=== PATIENT | female | born 1950 | race Caucasian/White ===

== ENCOUNTER → 2022-02-02 10:40 | Outpatient (CLI) | payer MEDICARE, OTHER, SELFPAY ==
[2022-02-02 11:56] LABS: Add Manual Diff / Slide Review NO; Basophils Absolute Auto 0 /uL (0-100); Basophils Percent Auto 0.4 % (0-2); Eosinophils Absolute Auto 100 /uL (0-450); Eosinophils Percent Auto 2.4 % (2-4); Hematocrit 42.3 % (36-46); Hemoglobin 14.1 g/dL (12.0-16.0); Lymphocytes Absolute Auto 1100 /uL (1100-4500); Lymphocytes Percent Auto 20.4 % (25-40); Mean Corpuscular HGB Conc 33.3 % (30-36); Mean Corpuscular Hemoglobin 30.1 PG (26-34); Mean Corpuscular Volume 90.4 fL (80-100); Monocytes Absolute Auto 500 /uL (0-900); Monocytes Percent Auto 10.2 % (3-14); Neutrophils Absolute Auto 3500 /uL (1500-7000); Neutrophils Percent Auto 66.6 % (50-75); Platelet Count 213 X10^3/uL (150-400); Red Blood Cell Count 4.67 X10^6/uL (4.0-5.2); Red Cell Distribution Width 14.9 % (11.6-14.8); White Blood Cell Count 5.2 X10^3/uL (4.5-11.0)
[2022-02-02 12:46] LABS: Erythrocyte Sedimentation Rate 11 MM/HR (0-20)
[2022-02-02 13:00] LABS: Alanine Aminotransferase 68 IU/L (<35); Albumin 4.3 g/dL (3.5-5.0); Albumin Globulin Ratio 1.6 (1.0-2.8); Alkaline Phosphatase 89 U/L (38-126); Aspartate Aminotransferase 57 IU/L (14-36); BUN Creatinine Ratio 18.3 (6-22); Bilirubin Total 0.6 mg/dL (0.2-1.3); Blood Urea Nitrogen 15 mg/dL (7-17); C-Reactive Protein Quant 0.9 mg/dL (<1.0); Calcium 9.2 mg/dL (8.4-10.2); Carbon Dioxide 29 mmol/L (22-32); Chloride 106 mmol/L (98-107); Cholesterol 196 mg/dL (140-199); Estimated Glomerular Filt Rate > 60 mL/min (>60); Globulin 2.7 g/dL (1.7-4.1); Glucose 108 mg/dL (80-110); HDL Cholesterol 74 mg/dL (40-60); HEMOLYSIS < 15 (0-50); LDL Cholesterol Calculated 105 mg/dL (<100); Potassium 4.5 mmol/L (3.4-5.1); Sodium 140 mmol/L (137-145); Triglycerides 86 mg/dL (35-150)
[2022-02-18 17:11] LABS: Vitamin D 25 Hydroxy (D3) 38.6 ng/mL (30.0-100.0)
== END ==
PROVIDERS: PCP Family Medicine; Referring Provider Family Medicine; Visit Provider Family Medicine
DX: D3A.8 Other benign neuroendocrine tumors (principal); L40.50 Arthropathic psoriasis, unspecified; G89.29 Other chronic pain; K21.9 Gastro-esophageal reflux disease without esophagitis; M54.50 Low back pain, unspecified
CPT/HCPCS: 36415; 80053; 80061; 82306; 85025; 85651; 86140

== ENCOUNTER → 2022-05-12 09:32 | Outpatient (CLI) | payer MEDICARE, OTHER, SELFPAY ==
--- NOTE | 2022-05-26 08:39 | P.HOLT.S_ITS ---
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 Patient Seen: 05/12/22 Requesting provider: Jose M Servin Indication: Palpitations Duration of monitoring (days): 7 Diary information: There were 29 patient triggered events and 5 patient diary entries Patient triggered events were variably associated (within 45 seconds) sinus rhythm, PVCs including ventricular bigeminy, PACs and SVT Patient diary events were variably associated with (within 45 seconds) sinus rhythm, PVCs and ventricular trigeminy Data: Minimum heart rate identified was 40 beats per minute at 16:39 on 05/13/2022 Maximum sinus heart rate was 134 beats per minute at 14:57 on 05/16/2022 Maximum overall heart rate was 200 beats per minute at 16:15 on 05/12/2022 dur ing a run of SVT Less than 1% of identified beats were ventricular or supraventricular ectopic in origin, which would classify them as rare. 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 Patient reported events were variably associated with multiple dysrhythmias as above and no clear single dysrhythmia seem to be a source of patient's symptoms No more significant findings discovered on this study Clinical correlation suggested
== END ==
PROVIDERS: PCP Family Medicine; Referring Provider Family Medicine; Visit Provider Family Medicine
DX: R00.2 Palpitations (principal); R06.09 Other forms of dyspnea
CPT/HCPCS: 93242; 93244

== ENCOUNTER → 2022-06-07 12:54 | Outpatient (CLI) | payer MEDICARE, OTHER, SELFPAY ==
[2022-06-07 14:47] LABS: COVID19 -Nasal RAPID Negative (Negative)
--- NOTE | 2022-06-07 14:52 | DI.ECHO.S_ITS ---
Interpretation Summary The ejection fraction is estimated to be 60-65%. Diastolic function could not be accurately assessed due to unobtainable data. The right ventricle is normal in size and function. No significant valvular abnormalities. Unable to estimate PASP. Procedure: A two-dimensional transthoracic echocardiogram with color flow and Doppler was performed. The study quality was technically difficult. There is no prior echocardiogram noted for this patient. A contrast injection of Definity was performed to improve assessment of LV function. The patient was in normal sinus rhythm during the exam. Left Ventricle: The left ventricle is normal in size and wall thickness. Left ventricular systolic function is normal. The ejection fraction is estimated to be 60-65%. There are no focal wall motion abnormalities. Diastolic function could not be accurately assessed due to unobtainable data. Right Ventricle: The right ventricle is normal in size and function. Atria: Both atria are normal in size. The interatrial septum grossly appears intact with no obvious evidence for an atrial septal defect. Mitral Valve: The mitral valve is normal in structure and function. There is no mitral regurgitation noted. Aortic Valve: The aortic valve is trileaflet. There is no aortic valve stenosis. No aortic regurgitation is present. Tricuspid Valve: The tricuspid valve is normal in structure but is abnormal in function. There is trace tricuspid regurgitation. Pulmonary artery pressures cannot be estimated because of the lack of a measurable TR jet velocity. Pulmonic Valve: The pulmonic valve is normal in structure and function. There is no pulmonic valvular regurgitation. Great Vessels: The aortic root is normal size. The dimensions of the ascending aorta are normal. The inferior vena cava was not visualized. Pericardium/ Pleura There is no pericardial effusion. There is no pleural effusion. MMode/2D Measurements & Calculations LVIDd: 4.5 cm LVOT diam: 2.0 cm LVIDs: 3.1 cm Ao root diam: 2.6 cm FS: 31.1 % asc Aorta Diam: 2.9 cm IVSd: 0.90 cm LVPWd: 0.90 cm LV be. diameter/BSA (cm/m^2): 2.1 LV sys. diameter/BSA (cm/m^2): 1.5 LA dimension: 3.1 cm RA long axis: 3.9 cm LA A2 area: 14.6 cm2 LA A4 area: 14.8 cm2 LA length (vol): 4.8 cm LA vol: 38.5 ml LA vol index: 18.2 ml/m2 TAPSE_phl: 2.4 cm Doppler Measurements & Calculations Ao V2 max: 123.0 cm/sec LVOT Max Willis: 99.9 cm/sec Ao V2 mean: 89.5 cm/sec LV V1 max P.0 mmHg Ao max P.0 mmHg LV V1 VTI: 24.8 cm Ao mean P.0 mmHg MAZIN(I,D): 2.6 cm2 Ao V2 VTI: 29.5 cm MAZIN(V,D): 2.6 cm2 sev ratio: 0.84 MAZIN indexed to BSA (cm^2/m^2): 1.2 MV E max willis: 83.1 cm/sec SV(LVOT): 77.9 ml MV A max willis: 71.1 cm/sec MV E/A: 1.2 Med Peak E' Willis: 7.8 cm/sec E/E' med: 10.6 Lat Peak E' Willis: 9.0 cm/sec E/E' lat: 9.2 E/e' average: 9.9 MV dec time: 0.20 sec AV VR_phl: 0.81 MV P1/2t-pr_phl: 60.0 msec MAZIN(VTI)/BSA_phl: 1.3 Reading Physician:05:02 PM
[2022-06-18 08:15] LABS: COVID19 -Nasal RAPID Negative (Negative)
--- NOTE | 2022-06-18 20:15 | DI.NM.S_ITS ---
DATE OF SERVICE: 06/07/2022 PROCEDURE PERFORMED: Exercise treadmill stress and rest myocardial perfusion imaging with gating to assess ejection fraction and regional wall motion. ORDERING PROVIDER: Dr. Jose M Servin. INDICATIONS: The patient is a 71-year-old female with palpitations and exertional dyspnea. CARDIAC STRESS: Her resting images were obtained on , after she was injected with 25.4 millicuries of technetium-99m Myoview and was imaged 20 minutes later. Her stress test was not performed until 06/18/2022 when she exercised on a standard Robbin protocol for 4 minutes, 57 seconds, suggesting mildly impaired exercise capacity with an ARLENE of +10%. She had a normal heart rate response to exercise, achieving a maximum heart rate of 144 BPM (97% of her predicted maximum), but had a hypertensive blood pressure response with a resting blood pressure of 160/88, increasing to a maximum of 245/96. She had no chest discomfort or other anginal symptoms and her resting ECG is normal with normal ST segments. There are no significant ST-segment shifts or arrhythmias with stress. At 3 minutes, 50 seconds of exercise at a heart rate of 129 BPM, 26.9 millicuries of technetium-99m Myoview was injected and she was imaged 10 minutes later using a gated SPECT acquisition protocol. FINDINGS: 1. Raw data: There is fair myocardial tracer uptake with moderate breast shadows that are more prominent on the stress images than the resting images. The lung/heart ratio is normal at 0.20 with a normal TID ratio of 1.24. 2. Myocardial perfusion imaging: Post-stress ejection fraction is 82% without any focal wall motion abnormality and specifically the anterior wall has normal contractility. There is slightly increased tracer uptake in the right ventricular free wall which can be an indication of a right ventricular overload condition. The resting ejection fraction is 87% with a normal end-diastolic volume of 71 mL. 3. Myocardial perfusion imaging: Post-stress supine images show a fairly normal myocardial perfusion pattern except a mild defect in the mid anterior wall, consistent with breast attenuation artifact, supported by its near-complete resolution on the prone images. The resting images show similar perfusion pattern, although with some slight improvement in the anterior wall, but likely reflecting breast attenuation artifact. IMPRESSION: 1. Probable normal myocardial perfusion study. 2. Mild, partially reversible mid anterior defect that nearly resolves on prone imaging, most consistent with probable breast attenuation artifact, although a small volume of ischemia cannot be entirely excluded. 3. Normal left ventricular systolic function without any focal wall motion abnormality. Mildly increased right ventricular tracer uptake could indicate a right ventricular overload condition but clinical correlation is recommended. 4. Mildly impaired exercise capacity without angina or ECG evidence of ischemia but with a notable hypertensive blood pressure response to exercise. Chela Watkins - MENA/jeremy/romina doc#: [id number]/job#: [id number] dd: 06/18/2022 17:02:00 dt: 06/18/2022 19:23:00 DICTATING /COPIES TO: Gorge Pratt MD COPIES MNE: BOSSMAN;
== END ==
PROVIDERS: PCP Family Medicine; Referring Provider Family Medicine; Visit Provider Family Medicine
DX: R00.2 Palpitations (principal); R06.09 Other forms of dyspnea; Z20.822 Contact with and (suspected) exposure to COVID-19
CPT/HCPCS: 78452; 87635; 93017; A9502; C8929; Q9957

== ENCOUNTER → 2022-12-08 15:15 | Outpatient (CLI) | payer MEDICARE, OTHER, SELFPAY ==
--- NOTE | 2022-12-08 15:16 | DI.RAD.S_ITS ---
PROCEDURE: XR FOOT RT MIN 3V INDICATIONS: trauma to foot TECHNIQUE: 3 views of the foot were acquired. COMPARISON: None. FINDINGS: Bones: There is a mildly displaced oblique fracture of the distal aspect of the proximal phalanx of the 5th digit . ORIF of the distal fibula. Well corticated bony fragment adjacent to the medial malleolus. Periarticular osteophyte formation at the tibiotalar and talonavicular joints. Soft tissues: No tibiotalar joint effusion. Achilles tendon appears normal. IMPRESSION: 1. 5th digit fracture. 2. Postsurgical sequelae. 3. Osteoarthritis. Dictated by: Lorraine Sanchez M.D. on 12/08/2022 at 16:23 Approved by: Lorraine Sanchez M.D. on 12/08/2022 at 16:24
== END ==
PROVIDERS: PCP Family Medicine; Referring Provider Family Medicine; Visit Provider Family Medicine
DX: S92.531A Displaced fracture of distal phalanx of right lesser toe(s), initial encounter for closed fracture (principal); M19.071 Primary osteoarthritis, right ankle and foot; M79.671 Pain in right foot
CPT/HCPCS: 73630

== ENCOUNTER → 2023-01-06 12:41 | Outpatient (CLI) | payer MEDICARE, OTHER, SELFPAY ==
--- NOTE | 2023-01-06 12:43 | DI.RAD.S_ITS ---
PROCEDURE: XR FOOT RT MIN 3V INDICATIONS: broken 5th toe TECHNIQUE: 3 views of the foot were acquired. COMPARISON: [facility], , XR FOOT RT MIN 3V, 12/08/2022, 15:19. FINDINGS: Bones: Subacute fracture of the 5th proximal phalange. Bridging callus noted at the fracture site compatible with evolution of healing. Fracture is healing in near anatomic alignment. Distal fibular fixation hardware is stable. Midfoot osteoarthritis and calcaneal bone spurs are stable. Soft tissues: No tibiotalar joint effusion. Achilles tendon appears normal. IMPRESSION: 5th proximal phalange fracture healing in near anatomic alignment. Dictated by: Sloane Grant MD, PhD on 01/06/2023 at 13:31 Approved by: Sloane Grant MD, PhD on 01/06/2023 at 13:31
== END ==
PROVIDERS: PCP Family Medicine; Referring Provider Family Medicine; Visit Provider Family Medicine
DX: S92.511D Displaced fracture of proximal phalanx of right lesser toe(s), subsequent encounter for fracture with routine healing (principal); M19.071 Primary osteoarthritis, right ankle and foot; M77.31 Calcaneal spur, right foot; M79.671 Pain in right foot; X58.XXXD Exposure to other specified factors, subsequent encounter
CPT/HCPCS: 73630

== ENCOUNTER → 2023-09-06 13:39 | Outpatient (CLI) | payer MEDICARE, OTHER, SELFPAY ==
--- NOTE | 2023-09-06 13:43 | DI.MRI.S_ITS ---
PROCEDURE: MR SHOULDER RT WO CON INDICATIONS: right shoulder pain TECHNIQUE: Noncontrast oblique coronal T2 fast spin echo with fat saturation, oblique sagittal T1 spin echo and T2 fast spin echo with fat saturation, axial T1 spin echo and T2 fast spin echo with fat saturation through the shoulder. COMPARISON: None. FINDINGS: Image quality: Excellent. Rotator cuff: There is moderate T2 signal elevation diffusely throughout the supraspinatus and infraspinatus tendons at the humeral insertion sites extending the musculotendinous junctions, indicating tendinopathy. There is high-grade transversely oriented tearing of the anterior and mid supraspinatus tendon at the humeral insertion site. There is low-grade intrasubstance tearing of the posterior supraspinatus tendon as well as the anterior infraspinatus tendon at the humeral insertion site. Moderate grade bursal surface and intrasubstance tearing of the mid and posterior infraspinatus tendon at the humeral insertion site. Teres minor tendon is intact. Moderate-grade intrasubstance tearing of the inferior aspect of the subscapularis tendon at the humeral insertion site is present. No rotator cuff atrophy. Bones and bursae: No bone marrow contusions or fractures. Moderate glenohumeral and acromioclavicular joint degeneration. The acromion demonstrates conventional anatomy, without an os acromiale. A small amount of subacromial-subdeltoid or subcoracoid bursal fluid is present. Capsule and soft tissues: Diffuse degenerative fraying of the glenoid labrum with superimposed undercutting of the posterosuperior labrum, indicating focal tearing. The long head of the biceps tendon demonstrates moderate T2 signal elevation within its substance proximally, indicating tendinopathy. There is partial-thickness tearing of the biceps tendon within the bicipital groove.. The rotator interval appears normal, without fibrosis. The coracohumeral ligament is normal in thickness. IMPRESSION: 1. Multifocal partial-thickness tears of the rotator cuff as above. 2. Acromioclavicular and glenohumeral joint osteoarthritis. 3. Partial thickness biceps tendon tear. 4. Glenoid labral tear. 5. Subacromial bursitis. Dictated by: Lorraine Sanchez M.D. on 09/06/2023 at 16:11 Approved by: Lorraine Sanchez M.D. on 09/06/2023 at 16:20
== END ==
PROVIDERS: PCP Family Medicine; Referring Provider Family Medicine; Visit Provider Family Medicine
DX: M75.111 Incomplete rotator cuff tear or rupture of right shoulder, not specified as traumatic (principal); M19.011 Primary osteoarthritis, right shoulder; S46.111A Strain of muscle, fascia and tendon of long head of biceps, right arm, initial encounter; S43.431A Superior glenoid labrum lesion of right shoulder, initial encounter; M75.51 Bursitis of right shoulder; M25.511 Pain in right shoulder
CPT/HCPCS: 73221

== ENCOUNTER → 2023-09-09 09:44 | Outpatient (CLI) | payer MEDICARE, OTHER, SELFPAY ==
[2023-09-09 10:42] LABS: Hemoglobin A1C% w Est Avg Glu 5.7 % (4.0-6.0)
[2023-09-09 11:21] LABS: TSH w/ Reflex to FT4 1.82 uIU/mL (0.47-4.68)
== END ==
PROVIDERS: PCP Family Medicine; Referring Provider Family Medicine; Visit Provider Family Medicine
DX: R73.09 Other abnormal glucose (principal); R63.5 Abnormal weight gain; L30.9 Dermatitis, unspecified; R20.0 Anesthesia of skin; R20.2 Paresthesia of skin; Z13.29 Encounter for screening for other suspected endocrine disorder
CPT/HCPCS: 36415; 83036; 84443

== ENCOUNTER → 2023-11-08 15:18 | Outpatient (CLI) | payer MEDICARE, OTHER, SELFPAY ==
--- NOTE | 2023-11-08 15:20 | DI.RAD.S_ITS ---
PROCEDURE: XR HIP W PEL IF DONE LT 2V INDICATIONS: pain x 3 weeks TECHNIQUE: AP pelvis with lateral view(s) of the left hip(s). COMPARISON: None. FINDINGS: Bones: No fractures or dislocations. Pelvic ring appears intact. No suspicious bony lesions. Mild nonuniform joint space narrowing with osteophytic lipping of the acetabulum. Soft tissues: The visualized bowel gas pattern is normal. No suspicious soft tissue calcifications. IMPRESSION: Mild left hip osteoarthritis. Dictated by: Len Su M.D. on 11/08/2023 at 16:43 Approved by: Len Su M.D. on 11/08/2023 at 16:44
--- NOTE | 2023-11-08 15:20 | DI.RAD.S_ITS ---
PROCEDURE: XR LUMBAR SPINE 2-3V INDICATIONS: pain x 3 weeks TECHNIQUE: 3 views of the lumbar spine were acquired. COMPARISON: None. FINDINGS: Bones: 5 [id number] vertebrae are present. Grade 1 anterolisthesis of L4 on L5. Moderate disc height loss at L2-3, L4-5. Mild disc height loss at remaining levels. Facet arthrosis of L2 through S1. Soft tissues: Overlying bowel gas pattern is normal. No suspicious soft tissue calcifications. Cholecystectomy clips. IMPRESSION: Mild to moderate, multilevel degenerative disc disease and facet arthrosis. Grade 1 anterolisthesis of L4 on L5, likely due to facet arthrosis. Dictated by: Len Su M.D. on 11/08/2023 at 16:43 Approved by: Len Su M.D. on 11/08/2023 at 16:43
[2023-11-08 16:56] LABS: Add Manual Diff / Slide Review NO; Basophils Absolute Auto 0 /uL (0-100); Basophils Percent Auto 0.4 % (0-2); Eosinophils Absolute Auto 200 /uL (0-450); Eosinophils Percent Auto 2.9 % (2-4); Hematocrit 41.6 % (36-46); Hemoglobin 14.1 g/dL (12.0-16.0); Lymphocytes Absolute Auto 1400 /uL (1100-4500); Lymphocytes Percent Auto 19.5 % (25-40); Mean Corpuscular HGB Conc 33.9 % (30-36); Mean Corpuscular Hemoglobin 30.2 PG (26-34); Mean Corpuscular Volume 88.9 fL (80-100); Monocytes Absolute Auto 600 /uL (0-900); Monocytes Percent Auto 9.2 % (3-14); Neutrophils Absolute Auto 4800 /uL (1500-7000); Platelet Count 202 X10^3/uL (150-400); Red Blood Cell Count 4.68 X10^6/uL (4.0-5.2)
[2023-11-08 17:25] LABS: Hemoglobin A1C% w Est Avg Glu 5.9 % (4.0-6.0)
[2023-11-08 17:27] LABS: Alanine Aminotransferase 37 IU/L (<35); Albumin 4.8 g/dL (3.5-5.0); Albumin Globulin Ratio 1.6 (1.0-2.8); Alkaline Phosphatase 101 U/L (38-126); Aspartate Aminotransferase 36 IU/L (14-36); BUN Creatinine Ratio 20.3 (6-22); Bilirubin Total 0.6 mg/dL (0.2-1.3); Blood Urea Nitrogen 16 mg/dL (7-17); Calcium 9.5 mg/dL (8.4-10.2); Carbon Dioxide 24 mmol/L (22-32); Chloride 108 mmol/L (98-107); Estimated Glomerular Filt Rate > 60 mL/min (>60); Glucose 95 mg/dL (80-110); HEMOLYSIS < 15 (0-50); Potassium 4.2 mmol/L (3.4-5.1); Sodium 139 mmol/L (137-145); Total Protein 7.8 g/dL (6.3-8.2)
[2023-11-08 17:34] LABS: NT-proBNP (BNP-Adult 18+) 310 pg/mL (<125)
== END ==
PROVIDERS: PCP Family Medicine; Referring Provider Physician Assistant; Visit Provider Physician Assistant
DX: M25.552 Pain in left hip (principal); G89.29 Other chronic pain; M54.50 Low back pain, unspecified
CPT/HCPCS: 36415; 72100; 73502; 80053; 83036; 83880; 85025

== ENCOUNTER → 2024-01-11 12:07 | Outpatient (CLI) | payer MEDICARE, OTHER, SELFPAY ==
[2024-01-11 12:33] LABS: Add Manual Diff / Slide Review NO; Basophils Absolute Auto 0 /uL (0-100); Basophils Percent Auto 0.4 % (0-2); Eosinophils Absolute Auto 200 /uL (0-450); Eosinophils Percent Auto 2.5 % (2-4); Hematocrit 42.5 % (36-46); Hemoglobin 14.1 g/dL (12.0-16.0); Lymphocytes Absolute Auto 1300 /uL (1100-4500); Lymphocytes Percent Auto 19.1 % (25-40); Mean Corpuscular HGB Conc 33.2 % (30-36); Mean Corpuscular Hemoglobin 29.4 PG (26-34); Mean Corpuscular Volume 88.4 fL (80-100); Monocytes Absolute Auto 600 /uL (0-900); Monocytes Percent Auto 9.5 % (3-14); Neutrophils Absolute Auto 4700 /uL (1500-7000); Neutrophils Percent Auto 68.5 % (50-75); Platelet Count 230 X10^3/uL (150-400); Red Cell Distribution Width 14.2 % (11.6-14.8); White Blood Cell Count 6.8 X10^3/uL (4.5-11.0)
[2024-01-11 12:48] LABS: Alanine Aminotransferase 27 IU/L (<35); Albumin 4.4 g/dL (3.5-5.0); Albumin Globulin Ratio 1.5 (1.0-2.8); Alkaline Phosphatase 94 U/L (38-126); Aspartate Aminotransferase 31 IU/L (14-36); BUN Creatinine Ratio 21.3 (6-22); Bilirubin Total 0.6 mg/dL (0.2-1.3); Blood Urea Nitrogen 19 mg/dL (7-17); Calcium 9.3 mg/dL (8.4-10.2); Carbon Dioxide 29 mmol/L (22-32); Chloride 106 mmol/L (98-107); Estimated Glomerular Filt Rate > 60 mL/min (>60); Glucose 113 mg/dL (80-110); HEMOLYSIS < 15 (0-50); Sodium 141 mmol/L (137-145); Total Protein 7.4 g/dL (6.3-8.2)
[2024-01-11 12:59] LABS: NT-proBNP (BNP-Adult 18+) 222 pg/mL (<125)
[2024-01-12 17:51] LABS: Hemoglobin A1C% w Est Avg Glu 5.9 % (4.0-6.0)
== END ==
PROVIDERS: PCP Family Medicine; Referring Provider Family Medicine; Visit Provider Family Medicine
DX: R79.89 Other specified abnormal findings of blood chemistry (principal); R73.01 Impaired fasting glucose; R63.5 Abnormal weight gain; D3A.8 Other benign neuroendocrine tumors; L81.9 Disorder of pigmentation, unspecified; R06.09 Other forms of dyspnea; R60.0 Localized edema
CPT/HCPCS: 36415; 80053; 83036; 83880; 85025

== ENCOUNTER → 2024-02-13 09:47 | Outpatient (CLI) | payer MEDICARE, OTHER, SELFPAY | LOC: CAR 09:48 | PROVIDERS: PCP Family Medicine; Referring Provider Family Medicine; Visit Provider Family Medicine | DX: R00.2 Palpitations (principal); R00.1 Bradycardia, unspecified | CPT/HCPCS: 93242 ==

== ENCOUNTER → 2024-06-14 10:02 | Outpatient (CLI) | payer MEDICARE, OTHER, SELFPAY ==
--- NOTE | 2024-06-14 10:04 | DI.CT.S_ITS ---
PROCEDURE: CT HEAD/BRAIN WO/W CON INDICATIONS: new headache after age 49, on chemo TECHNIQUE: 4.5 mm thick angled axial sections acquired from the foramen magnum to the vertex both before and after the administration of intravenous contrast, with coronal and sagittal reformats. For radiation dose reduction, the following was used: automated exposure control, adjustment of mA and/or kV according to patient size. COMPARISON: None. FINDINGS: Image quality: Excellent. CSF spaces: Basal cisterns are patent. No extra-axial fluid collections. Ventricles are symmetric in size and shape. Brain: No midline shift. No intracranial bleeds or masses. No abnormal intracranial enhancement. There is cerebral volume loss for age. There is periventricular white matter chronic small vessel ischemic change. There is intracranial internal carotid artery atherosclerosis. A few areas of brain parenchymal calcification can be seen, which are primarily seen peripherally. Skull and face: Calvarium and visualized facial bones appear intact, without suspicious lesions. Sinuses: Visualized sinuses and mastoids are clear. IMPRESSION: No acute intracranial hemorrhage is seen. No acute intracranial process is seen. To the limits of CT, no masses or areas of abnormal enhancement can be seen. Note is made of several areas of parenchymal calcification, which are primarily seen peripherally. Please correlate with patient history, including potential parasite exposure. If it would be helpful for clinical management decision making, please consider a dedicated, scheduled brain MRI (without and with contrast) for further evaluation (assuming that there is no contraindication). Dictated by: Desean Gabriel M.D. on 06/14/2024 at 10:39 Approved by: Desean Gabriel M.D. on 06/14/2024 at 10:40
[2024-06-14 10:26] LABS: Estimated Glomerular Filt Rate > 60 mL/min (>60)
== END ==
PROVIDERS: Radiology Diagnostic Radiology; PCP Family Medicine; Referring Provider Family Medicine; Visit Provider Family Medicine
DX: G44.309 Post-traumatic headache, unspecified, not intractable (principal); I65.29 Occlusion and stenosis of unspecified carotid artery; D84.9 Immunodeficiency, unspecified
CPT/HCPCS: 36415; 70470; 82565; Q9967

== ENCOUNTER → 2024-11-08 13:56 | Outpatient (CLI) | payer MEDICARE, OTHER, SELFPAY ==
--- NOTE | 2024-11-08 13:57 | DI.RAD.S_ITS ---
PROCEDURE: XR HIP W PEL IF DONE LT 2V INDICATIONS: hip pain TECHNIQUE: AP pelvis with lateral view(s) of the left hip(s). COMPARISON: [facility], , XR HIP W PEL IF DONE LT 2V, 11/08/2023, 15:28. FINDINGS: Bones: No fractures or dislocations. [id number] bilateral hip joint osteoarthritic changes are seen worse on the left side unchanged or slightly progressed compared to 2023 study. No evidence of avascular necrosis of femoral head. Pelvic ring appears intact. No suspicious bony lesions. Degenerative disc disease in visualized lower lumbar spine is seen. Soft tissues: The visualized bowel gas pattern is normal. No suspicious soft tissue calcifications. IMPRESSION: No acute pelvic or hip fracture. [id number] bilateral hip joint osteoarthritis worse on the left side. No evidence of avascular necrosis. Dictated by: Wong Heredia M.D. on 11/08/2024 at 20:54 Approved by: Wong Heredia M.D. on 11/08/2024 at 20:55
== END ==
PROVIDERS: PCP Family Medicine; Referring Provider Family Medicine; Visit Provider Family Medicine
DX: M16.0 Bilateral primary osteoarthritis of hip (principal); M25.552 Pain in left hip; G89.29 Other chronic pain
CPT/HCPCS: 73502